=== PATIENT | female | born 1995 | race Caucasian/White ===

== ENCOUNTER 2016-10-04 02:30 | Emergency (ER) | payer OTHER ==
[2016-10-04 02:22] LABS: URINE SOURCE CLEAN CATCH
[2016-10-04 02:27] LABS: MICRO INDICATED? NO; URINE APPEARANCE CLEAR; URINE BILIRUBIN NEG (NEG); URINE BLOOD NEG (NEG); URINE COLOR YELLOW; URINE GLUCOSE NEG (NORM); URINE KETONE TRACE (NEG); URINE LEUKOCYTE ESTERASE NEG (NEG); URINE NITRATE NEG (NEG); URINE PH 6.5 (5-8); URINE PROTEIN NEG (NEG); URINE SPECIFIC GRAVITY 1.015 (1.003-1.035); URINE UROBILINOGEN 0.2 MG/DL (NORM)
[~2016-10-04 02:30] MED LIST: ALBUTEROL17 GM INH; ARISTOCORT A 0.15 G1 TOP; MEDROL PO; PREDNISONE PO; TRAZODONE PO
[2016-10-07 09:17] LABS: CHLAMYDIA TRACH Not Detected (Not Detected); N GONOR Not Detected (Not Detected)
== END 2016-10-04 03:12 | disposition home or self-care (01) ==
LOC: SED 02:30
PROVIDERS: Emergency Medicine
DX: R10.2 Pelvic and perineal pain (principal); J45.909 Unspecified asthma, uncomplicated; F17.200 Nicotine dependence, unspecified, uncomplicated
CPT/HCPCS: 81003; 84703; 87210; 87491; 87591; 87808; 87905; 99284

== ENCOUNTER 2017-01-02 07:08 | Emergency (ER) | payer OTHER ==
[2017-01-02 08:06] LABS: URINE SOURCE CLEAN CATCH
[2017-01-02 08:08] LABS: URINE APPEARANCE CLEAR; URINE BILIRUBIN NEG (NEG); URINE BLOOD NEG (NEG); URINE COLOR YELLOW; URINE GLUCOSE NEG (NORM); URINE KETONE TRACE (NEG); URINE LEUKOCYTE ESTERASE NEG (NEG); URINE NITRATE NEG (NEG); URINE PROTEIN 2+ (NEG); URINE SPECIFIC GRAVITY >=1.030 (1.003-1.035); URINE UROBILINOGEN 0.2 MG/DL (NORM)
[2017-01-02 08:10] LABS: MICRO INDICATED? YES
[2017-01-02 08:14] LABS: CULTURE INDICATED? NO; URINE BACTERIA NEG (NEG); URINE RBC 0-2 /[HPF] (0-2); URINE WBC 0-2 /[HPF] (0-5)
== END 2017-01-02 09:07 | disposition home or self-care (01) ==
LOC: SED 07:08
PROVIDERS: Emergency Medicine
DX: R30.0 Dysuria (principal); J45.909 Unspecified asthma, uncomplicated; F17.200 Nicotine dependence, unspecified, uncomplicated
CPT/HCPCS: 81003; 84703; 99284